=== PATIENT | female | born 1980 | race Caucasian/White ===

== ENCOUNTER 2024-08-25 10:00 | Outpatient (RCR) | payer BC, SELFPAY | END 2024-10-13 13:05 | disposition home or self-care (01) | PROVIDERS: Visit Provider Student in an Organized Health Care Education/Training Program | DX: Z48.89 Encounter for other specified surgical aftercare (principal); Z51.89 Encounter for other specified aftercare | CPT/HCPCS: 97110; 97140; 97162 ==

== ENCOUNTER 2024-09-14 10:00 | Outpatient (CLI) | payer BC, SELFPAY ==
--- NOTE | 2024-09-14 10:15 | CRLHL7_ITS ---
For Patients: As a result of the Century Cures Act, medical imaging exams and procedure reports are released immediately into your electronic medical record. You may view this report before your referring provider. If you have questions, please contact your health care provider. ULTRASOUND-GUIDED BREAST BIOPSY AND POST-BIOPSY DIGITAL MAMMOGRAM FOR BIOPSY MARKER PLACEMENT CLINICAL HISTORY: Indeterminate density. COMPARISON STUDIES: 08/19/2024, 09/07/2024. TECHNIQUE: Real-time ultrasound with image documentation was used for targeting the breast lesion. Core biopsy specimens were obtained using an automated gun with an 18-gauge biopsy needle. Post-biopsy CC and ML digital mammograms were obtained to document position of the biopsy marker. CONSENT and TIME OUT: The procedure, risks, and alternatives were explained to the patient and a consent was signed. [place] Protocol was followed including pre-procedure verification that relevant information/documentation was available, reviewed and properly matched to the patient; consent accurate and complete; and equipment and supplies available. Time Out was conducted just prior to starting procedure to verify the four required elements: patient identity, correct side/site marked (if applicable), procedure, relevant images/results properly labeled and displayed (if applicable). PROCEDURE: The patient was positioned supine on the ultrasound table. The breast was prepped with ChloraPrep. 6 cc of 1 percent lidocaine used for local anesthesia. Core samples were obtained. A sterile metal biopsy clip was placed percutaneously to hao the lesion position within the breast. The specimens were placed in 10% formalin and sent to the pathology department. Pressure was held on the biopsy site until all bleeding subsided. The skin incision was closed with Steri-Strips. An ice pack was positioned over the biopsy site. Post-biopsy instructions were reviewed with the patient, and a written copy was given to her. LATERALITY: LEFT breast. LESION: Ill-defined focus of hypoechoic tissue measuring 8 millimeters at 1-2 o`clock 2 cm from the nipple. SUSPICION FOR MALIGNANCY: Low. NUMBER OF SAMPLES: 5. BIOPSY CLIP SHAPE: Oval. PROXIMITY OF CLIP TO TARGET: Within the lesion. IMPRESSION: Ultrasound-guided breast biopsy. When the pathology report is available, an addendum to this report will be made. ACR not applicable Dictated by Evan Rodriguez MD @ 09/14/2024 11:15:21 AM jj/Dictated by: Evan Rodriguez MD @ 09/14/2024 11:15:00 AM (Electronically Signed)
--- NOTE | 2024-09-14 11:00 | CRLHL7_ITS ---
For Patients: As a result of the Century Cures Act, medical imaging exams and procedure reports are released immediately into your electronic medical record. You may view this report before your referring provider. If you have questions, please contact your health care provider. PLEASE SEE ULTRASOUND-GUIDED LEFT BREAST BIOPSY PERFORMED SAME DAY CRL:[email or web address] thomas/Dictated by: Evan Rodriguez MD @ 09/14/2024 11:15:00 AM (Electronically Signed)
== END 2024-09-14 10:01 | disposition home or self-care (01) ==
PROVIDERS: PCP Family Medicine; Visit Provider Family Medicine
DX: N63.20 Unspecified lump in the left breast, unspecified quadrant (principal); C50.912 Malignant neoplasm of unspecified site of left female breast; R92.8 Other abnormal and inconclusive findings on diagnostic imaging of breast
CPT/HCPCS: 19083; 77065; 88305; 88360; 88361; A4648; A4649

== ENCOUNTER 2025-02-04 14:45 | Outpatient (RCR) | payer BC, SELFPAY ==
--- NOTE | 2024-12-01 10:13 | URNOTE ---
Request received for authorization for [facility] ([id number]). Prior authorization is approved per [facility] Ref# [id number], date range: 11/26/2024 to 05/24/2025.
[2024-12-03 13:14] VITALS: BP 146/78; PULSE 76; RESP 18; TEMP 37.2; O2SAT 100
[2024-12-03] MEDS: PEGFILGRASTIM-JMDB (Fulphila) 6 MG/0.6 ML SUBCUT (13:42)
[2024-12-24 15:05] VITALS: BP 113/72; PULSE 59; RESP 16; TEMP 36.5; O2SAT 100
[2024-12-24] MEDS: PEGFILGRASTIM-JMDB (Fulphila) 6 MG/0.6 ML SUBCUT (15:11)
[2025-01-14 15:00] VITALS: BP 131/74; PULSE 70; RESP 16; TEMP 36.4; O2SAT 99
[2025-01-14] MEDS: PEGFILGRASTIM-JMDB (Fulphila) 6 MG/0.6 ML SUBCUT (15:09)
[2025-02-04] MEDS: PEGFILGRASTIM-JMDB (Fulphila) 6 MG/0.6 ML SUBCUT (14:54)
[2025-02-04 15:15] VITALS: BP 118/66; PULSE 54; RESP 18; TEMP 36.6; O2SAT 100
== END 2025-06-01 23:59 | disposition home or self-care (01) ==
LOC: CCIC 14:45
PROVIDERS: PCP Family Medicine; Referring Provider Family Medicine; Visit Provider Clinical Nurse Specialist
DX: D70.1 Agranulocytosis secondary to cancer chemotherapy (principal); T45.1X5A Adverse effect of antineoplastic and immunosuppressive drugs, initial encounter; C50.912 Malignant neoplasm of unspecified site of left female breast; Z17.0 Estrogen receptor positive status [ER+]
CPT/HCPCS: 96372; Q5108

== ENCOUNTER 2025-02-24 13:39 | Outpatient (CLI) | payer BC, SELFPAY ==
[2025-02-24 13:54] LABS: Ur HCG Qualitative* Negative (Negative)
== END 2025-02-24 13:40 | disposition home or self-care (01) ==
PROVIDERS: PCP Family Medicine; Visit Provider Physician Assistant
DX: C50.412 Malignant neoplasm of upper-outer quadrant of left female breast (principal)
CPT/HCPCS: 81025